=== PATIENT | male | born 1995 | race Hispanic/Latino ===

== ENCOUNTER 2021-07-21 13:59 | Emergency (ER) | payer OTHER ==
--- NOTE | 2021-07-21 16:01 | RAD REPORT ---
EXAM DESCRIPTION: RAD - Hand Right 3 View - 07/21/2021 3:31 pm CLINICAL HISTORY: Right hand pain status post injury FINDINGS: No fracture or dislocation is seen.
--- NOTE | 2021-07-21 16:10 | EDPHYS ---
Physician Documentation [facility] Name: Cayden Holloway Age: 25 yrs Sex: Male : 1995 Arrival Date: 07/21/2021 Time: 14:01 Bed DX1 Private MD: ED Physician Adolfo Mensah HPI: 07/21 16:06 This 25 yrs old Male presents to ER via Ambulatory with complaints of Hand kb Injury. 16:06 The patient or guardian reports decreased range of motion, pain. The complaints affect kb the right middle finger. Context: The problem was sustained at home, resulted from using own fist to strike, a wall. Onset: The symptoms/episode began/occurred today. Modifying factors: The symptoms are alleviated by nothing, the symptoms are aggravated by movement. Associated signs and symptoms: The patient has no apparent associated signs or symptoms. Severity of symptoms: At their worst the symptoms were moderate, in the emergency department the symptoms are unchanged. The patient has not experienced similar symptoms in the past. The patient has not recently seen a physician. Historical: - Allergies: 14:20 No Known Allergies; ss - Immunization history:: Client reports receiving the 2nd dose of the Covid vaccine. - Social history:: Smoking status: Patient reports the use of cigarette tobacco products, denies chronic smoking, but will smoke occasionally. ROS: 16:03 Constitutional: Negative for fever, chills, and weight loss, Skin: Negative for injury, kb rash, and discoloration, Neuro: Negative for headache, weakness, numbness, tingling, and seizure. 16:03 MS/extremity: Positive for decreased range of motion, pain, of the right middle finger. Exam: 16:03 Constitutional: This is a well developed, well nourished patient who is awake, alert, kb and in no acute distress. Head/Face: Normocephalic, atraumatic. ENT: Moist Mucous membranes Respiratory: Respirations even and unlabored. No increased work of breathing, no retractions or nasal flaring. Skin: Warm, dry with normal turgor. Normal color. Neuro: Awake and alert, GCS 15, oriented to person, place, time, and situation. Moves all extremities. Normal gait. Psych: Awake, alert, with orientation to person, place and time. Behavior, mood, and affect are within normal limits. 16:03 Musculoskeletal/extremity: Extremities: grossly normal except: noted in the right middle finger: decreased ROM, pain, ROM: limited active range of motion due to pain, in the right middle finger, Circulation is intact in all extremities. Sensation intact. Vital Signs: 14:18 Pulse 77; Resp 16; Temp 98.5(TE); Pulse Ox 99% on R/A; Weight 58.97 kg; Height 5 ft. 9 ss in. (175.26 cm); Pain 5/10; 14:20 BP 138 / 78; ss 14:18 Body Mass Index 19.20 (58.97 kg, 175.26 cm) ss MDM: 15:59 Patient medically screened. kb 16:03 Data reviewed: vital signs, nurses notes. Data interpreted: Pulse oximetry: on room air kb is 99 %. Interpretation: normal. Counseling: I had a detailed discussion with the patient and/or guardian regarding: the historical points, exam findings, and any diagnostic results supporting the discharge/admit diagnosis, radiology results, the need for outpatient follow up, a orthopedic surgeon, to return to the emergency department if symptoms worsen or persist or if there are any questions or concerns that arise at home. 07/21 14:21 Order name: XRAY Hand RIGHT 3 View; Complete Time: 16:03 ss Administered Medications: No medications were administered Disposition Summary: 07/21/21 16:09 Discharge Ordered Location: Home kb Condition: Stable kb Diagnosis - Other sprain of right middle finger kb Followup: kb - With: Emergency Department - When: As needed - Reason: Worsening of condition Followup: kb - With: Private Physician - When: 2 - 3 days - Reason: Recheck today's complaints, Continuance of care, Re-evaluation by your physician Discharge Instructions: - Discharge Summary Sheet kb - Finger Sprain, Adult, [id number] kb Forms: - Medication Reconciliation Form kb - Thank You Letter kb - Antibiotic Education kb - Prescription Opioid Use kb Addendum: 07/23/2021 19:11 Co-signature as Attending Physician, Adolfo Mensah MD. m a2 Signatures: Dispatcher [employer] Amie Gonzalez, Leonor Hannon RN RN Adolfo Mensah MD MD mt2 Corrections: (The following items were deleted from the chart) 07/21 16:04 16:03 Constitutional: Negative for fever, chills, and weight loss, kb kb
--- NOTE | 2021-07-21 16:10 | ER ---
Nurse's Notes [facility] Name: Cayden Holloway Age: 25 yrs Sex: Male : 1995 Arrival Date: 07/21/2021 Time: 14:01 Bed DX1 Private MD: Diagnosis: Other sprain of right middle finger Presentation: 07/21 14:18 Chief complaint: Patient states: R third finger pain that began last night after ss punching a wall. Coronavirus screen: Client denies travel out of the [place] in the last 14 days. Ebola Screen: Patient denies exposure to infectious person. Patient denies travel to an Ebola-affected area in the 21 days before illness onset. Initial Sepsis Screen: Does the patient meet any 2 criteria? No. Patient's initial sepsis screen is negative. Does the patient have a suspected source of infection? No. Patient's initial sepsis screen is negative. Risk Assessment: Do you want to hurt yourself or someone else? Patient reports no desire to harm self or others. Onset of symptoms was July 20, 2021. 14:18 Method Of Arrival: Ambulatory ss 14:18 Acuity: FABIANA 4 ss Historical: - Allergies: 14:20 No Known Allergies; ss - Immunization history:: Client reports receiving the 2nd dose of the Covid vaccine. - Social history:: Smoking status: Patient reports the use of cigarette tobacco products, denies chronic smoking, but will smoke occasionally. Vital Signs: 14:18 Pulse 77; Resp 16; Temp 98.5(TE); Pulse Ox 99% on R/A; Weight 58.97 kg; Height 5 ft. 9 ss in. (175.26 cm); Pain 5/10; 14:20 BP 138 / 78; ss 14:18 Body Mass Index 19.20 (58.97 kg, 175.26 cm) ss ED Course: 14:01 Patient arrived in ED. mr 14:20 Triage completed. ss 14:20 Arm band placed on left wrist. ss 14:22 Amie Valente FNP-C is PHCP. kb 14:22 Adolfo Mensah MD is Attending Physician. kb 15:31 XRAY Hand RIGHT 3 View In Process Unspecified. EDMS 16:50 Leonor Cardenas, OBED is Primary Nurse. ss 16:50 No provider procedures requiring assistance completed. Patient did not have IV access ss during this emergency room visit. Administered Medications: No medications were administered Outcome: 16:09 Discharge ordered by . lory 16:50 Discharged to home ambulatory. ss 16:50 Condition: good 16:50 Discharge instructions given to patient, Instructed on discharge instructions, follow up and referral plans. Demonstrated understanding of instructions, follow-up care. 16:50 Patient left the ED. ss Signatures: Dispatcher [employer] EDAmie De Jesus, VITALIY JIMÉNEZ-Vicenta Mascorro Shelby, RN RN ss
[2021-07-21 17:04] VITALS: BP 138/78; TEMP 98.5; O2SAT 99
== END 2021-07-21 16:50 | disposition home or self-care (01) ==
LOC: ER 13:59
DX: S63.692A Other sprain of right middle finger, initial encounter (principal); W22.8XXA Striking against or struck by other objects, initial encounter; Y93.89 Activity, other specified; Y92.009 Unspecified place in unspecified non-institutional (private) residence as the place of occurrence of the external cause; F17.210 Nicotine dependence, cigarettes, uncomplicated
CPT/HCPCS: 99283